=== PATIENT | female | born 1995 | race African-American/Black ===

== ENCOUNTER 2018-03-07 21:49 | Emergency (ER) | payer SELFPAY ==
[~2018-03-07] VITALS: Ht 160 cm; Wt 91.7 kg
[2018-03-07 23:35] LABS: CALCIUM 8.2 mg/dL (8.5-10.1); CARBON DIOXIDE 22.4 mmol/L (21-32); CHLORIDE SERUM 105 mmol/L (98-107); GFR1 > 60 mL/min; GLUCOSE SERUM 94 mg/dL (74-106); POTASSIUM SERUM 3.6 mmol/L (3.5-5.1); SODIUM SERUM 138 mmol/L (136-145)
[2018-03-07 23:41] LABS: BASOPHIL % 1.4 % (0-2); PLATELET COUNT 270 x10^3mcL (130-400); RED CELL DISTRIBUTION WIDTH 13.6 % (11.5-14.5)
[2018-03-07 23:47] LABS: ALBUMIN 3.8 g/dL (3.4-5.0); ALKALINE PHOSPHATASE 65 U/L (46-116); ALT/SGPT 27 U/L (14-59); AST/SGOT 19 U/L (15-37); BILIRUBIN TOTAL 0.2 mg/dL (0.20-1.00); FREE T4 0.98 ng/dL (0.76-1.46)
[2018-03-08 00:23] LABS: UA SPECIFIC GRAVITY 1.015 (1.005-1.035); microscopic required? YES; urine erythrocyte 2+ (NEGATIVE)
[2018-03-08 01:00] LABS: AMPHETAMINE QUAL UR NONE DETECTED (See below)
[2018-03-08 01:31] VITALS: BP 125/90
== END 2018-03-08 01:31 | disposition home or self-care (01) ==
LOC: ED 21:49
PROVIDERS: Emergency Medicine
DX: R07.89 Other chest pain (principal); R06.00 Dyspnea, unspecified; N39.0 Urinary tract infection, site not specified; J45.909 Unspecified asthma, uncomplicated
CPT/HCPCS: 83880; 84439; J0171; J7512; Q0163